=== PATIENT | male | born 2000 | race Asian ===

== ENCOUNTER 2023-10-21 22:35 | Emergency (ER) | payer SELFPAY ==
[2023-10-21 22:36] VITALS: BP 158/84
[2023-10-22 00:28] VITALS: BMI 23.6
--- NOTE | 2023-10-22 01:26 | ED.GENMED ---
History of Present Illness
General
Chief Complaint: Musculo-Skeletal Complaint
Source: patient
Exam Limitations: none
Time Seen by Provider: 10/22/23 00:56
Nursing documentation reviewed up to this point in time: agreed with
Travel History
Have you had any contact with someone who has COVID-19?: No
Do you have any symptoms of coronavirus? Fever > 100 degrees, chills, cough, shortness of breath, sore throat, loss of taste or smell, muscle aches, or headache?: No
History of Present Illness
History of Present Illness:
Patient presents to ED secondary to left wrist pain with swelling, shortly after working out at the gym this afternoon. Denies direct trauma. Patient states that he initially did not have any pain. It is only after the completion of workup, he
noted more prominent swelling of the bone along his wrist. When he looked up on Internet, reviewed possibility of wrist dislocation. Denies previous wrist injury. Denies loss of sensation or weakness.
Past History
Past History
ED Past Medical History: Psychiatric (Schizophrenia)
ED Past Surgical History: None
Patient has exhibited threatening behavior?: No
Social History
Tobacco: Smoker (1 PPD x7 years)
Alcohol: Occasional
Drug: Marijuana
Personal: Single
Living: with family
Employment: Employed (works at [employer])
Family History
Family History: Unable to obtain
Review of Systems
Review of Systems
Allergies reviewed?: Yes
All Other Systems: ROS reviewed and negative except as documented in HPI and ROS
Constitutional: Reports no symptoms
Musculoskeletal: Reports other (Wrist pain with swelling)
Skin: Reports no symptoms
Neurological: Reports no symptoms
Phy Exam
Physical Exam
Physical Exam:
Physical Exam
General: no apparent distress, not acutely ill. afebrile
Head: nc/at. eomi
Neck: supple. no meningeal signs.
Neuro: alert and oriented. no focal neurological deficits
Skin: no rash
Psychiatric: well kept. interactive and cooperative
Extremities: Prominent left wrist ulnar styloid bone noted, without tenderness to palpation. No deformity noted.
Course
Orders/Labs/Results
Orders:
Orders
10/21/23 23:01
Wrist, Left 3 Views CR [CR Wrist - Left Min 3 Views] Urgent
Comment:
Reason For Exam: pain/popping sensation
Vital Signs
Initial and Last Documented VS:
Initial Vital Signs
Temp Pulse Resp BP Pulse Ox
98.0 F 95 18 158/84 98
10/21/23 22:36 10/21/23 22:36 10/21/23 22:36 10/21/23 22:36 10/21/23 22:36
Last Documented Vital Signs
Temp Pulse Resp BP Pulse Ox
98.0 F 95 18 158/84 98
10/21/23 22:36 10/21/23 22:36 10/21/23 22:36 10/21/23 22:36 10/22/23 00:28
MDM/Problems Addressed
MDM/Problems Addressed:
History exam consistent with likely mild wrist sprain, without any obvious deformity nor any acute findings on x-ray. Patient will be provided with universal Velcro wrist splint for symptomatic relief, along with recommendation for PCP follow-up as
an outpatient.
*Critical Care Note
Total Time (30-74mins, 75-104mins- exclusive of procedures): Not Applicable
ED Attending Note
-
Portions of this chart may have been created with voice recognition software.� Occasional wrong word or��sound alike� substitutions may have occurred due to the inherent limitations of voice recognition software.
Discharge Plan
Departure
Patient Disposition: Home (Routine Discharge)
Date of Disposition: 10/22/23
Time of Disposition: 01:26
Patient with high blood pressure during this ER visit?: Yes
Condition: Good
Discharge Problem:
Muscle strain of wrist
Instructions: Wrist Sprain (DC)
Prescriptions:
No Action
No Current Medications
0
Activity Restrictions/Additional Instructions:
As discussed, please follow-up with your primary care physician with any further concerns.
Interventions
Interventions:
*Risk Screen - Suicide Last Done: 10/21/23 22:36
*General Assessment Last Done: 10/21/23 22:36
*Neglect/Abuse Screening Last Done: 10/21/23 22:36
ED- Fall Risk Assessment Last Done: 10/22/23 00:28
*ED COVID-19 Vaccine History Last Done: 10/22/23 00:28
*Nursing Disposition Last Done: 10/22/23 01:39
ED-Musculoskeletal Assessment Last Done: 10/22/23 00:28
Discharge Date and Time
Discharge Date/Time: 10/22/23 01:39
== END 2023-10-22 01:39 | disposition home or self-care (01) ==
LOC: EMR 22:35
PROVIDERS: EMERGENCY PHYSICIAN Emergency Medicine
DX: S66.912A Strain of unspecified muscle, fascia and tendon at wrist and hand level, left hand, initial encounter (principal); X50.9XXA Other and unspecified overexertion or strenuous movements or postures, initial encounter; F17.210 Nicotine dependence, cigarettes, uncomplicated; R03.0 Elevated blood-pressure reading, without diagnosis of hypertension
CPT/HCPCS: 99283; 29125; 73110

== ENCOUNTER 2024-02-03 18:51 | Emergency (ER) | payer OTHER, SELFPAY ==
[2024-02-03 18:52] VITALS: BP 146/100
--- NOTE | 2024-02-03 19:55 | ED.GENMED ---
History of Present Illness
General
Chief Complaint: Male Genito-Urinary Symptoms
Source: patient
Exam Limitations: none
Time Seen by Provider: 02/03/24 19:18
Nursing documentation reviewed up to this point in time: agreed with
History of Present Illness
History of Present Illness:
23 y/o M with h/o anxiety
here with requests for STD testing
pt says that he had unprotected sex with a female yesterday and then heard that she 'sleeps around' so he got concerned
he poured some mouthwash on his penis for disinfectant
and now he wants to be tested and treated for STI
no dysuria, penile discharge, testiciular pain, swelling rash
Past History
Past History
ED Past Medical History: Psychiatric (Schizophrenia)
ED Past Surgical History: None
Patient has exhibited threatening behavior?: No
Social History
Tobacco: Smoker (1 PPD x7 years)
Alcohol: Occasional
Drug: Marijuana
Personal: Single
Living: with family
Employment: Employed (works at [employer])
Family History
Family History: Unable to obtain
Review of Systems
Review of Systems
Allergies reviewed?: Yes
All Other Systems: Not applicable
Phy Exam
Physical Exam
Physical Exam:
GENERAL: Alert , in no apparent distress
cv: regular
lungs clear
: deferred
PSYCH: anxious, but no halluciantions, delusions
Course
Orders/Labs/Results
Orders:
Orders
02/03/24 19:55
Azithromycin [Zithromax] 1,000 mg PO NOW STA
Ceftriaxone Sodium [Rocephin] 500 mg IM NOW STA
MetroNIDAZOLE [Flagyl] 2,000 mg PO NOW STA
02/03/24 19:58
Chlamydia/GC by PCR Urgent
GE[facility]A Source: Urine
Specimen Description:
Source:: URINE
Date Specimen was Collected: 02/03/24
Time Specimen was Collected: 19:57
02/03/24 20:06
Lidocaine 1%/Epinephrine [Xylocaine 1% with Epinephrine] 20 ml .ROUTE .STK-MED ONE
Vital Signs
Initial and Last Documented VS:
Initial Vital Signs
Temp Pulse Resp BP Pulse Ox
97.8 F 100 18 146/100 100
02/03/24 18:52 02/03/24 18:52 02/03/24 18:52 02/03/24 18:52 02/03/24 18:52
Last Documented Vital Signs
Temp Pulse Resp BP Pulse Ox
97.8 F 100 18 146/100 100
02/03/24 18:52 02/03/24 18:52 02/03/24 18:52 02/03/24 18:52 02/03/24 18:52
MDM/Problems Addressed
Differential Diagnosis Includes:
std exposure
MDM/Problems Addressed:
23 y/o M with no reported pmh but schizophrenia/anxiety dx
here with requests for STI treatment after having unprotected sex las tnight with female
no sypmtoms
anxious
declined exam
no allergies
gc/ct pending
abx offered
needs HIV testing 3 mo
*Critical Care Note
Total Time (30-74mins, 75-104mins- exclusive of procedures): Not Applicable
ED Attending Note
-
Portions of this chart may have been created with voice recognition software.� Occasional wrong word or��sound alike� substitutions may have occurred due to the inherent limitations of voice recognition software.
Discharge Plan
Departure
Patient Disposition: Home (Routine Discharge)
Date of Disposition: 02/03/24
Time of Disposition: 20:05
Patient with high blood pressure during this ER visit?: No
Condition: Fair
Covid-19: Not Applicable
Discharge Problem:
Concern about STD in male without diagnosis
Instructions: Sexually Transmitted Infections ED
Prescriptions:
No Action
No Current Medications
0
Referrals:
UNKNOWN - PT DOES,NOT KNOW [Family Provider] -
Activity Restrictions/Additional Instructions:
YOU WERE TREATED FOR GONORRHEA, CHLMAYDIA AND TRICHOMONAS
YOU SHOULD NOT HAVE ANY ALCOHOL FOR 3 DAYS
YOU NEED TO FOLLOW UP WITH YOUR DOCTOR OR [facility]ANNED [facility] AND HAVE HIV AND SYPHILIS TESTING WITHIN A FEW MONTHS
WE WILL CALL YOU IF YOU ARE POSITIVE FOR ONE OF THESE INFECTIONS
IF YOU DO NOT HEAR FROM US, THE TESTS WERE NEGATIVE
YOU MAY HAVE STOMACH UPSET WITH THE MEDICATION
RETURN FO RANY CONCERNS
NO SEX FOR 2 WEEKS IF YOU TEST POSITIVE
Interventions
Interventions:
*Risk Screen - Suicide Last Done: 02/03/24 18:52
*Neglect/Abuse Screening Last Done: 02/03/24 18:52
*Nursing Disposition Last Done: 02/03/24 20:26
ED-Male Genitourinary Assessment Last Done: 02/03/24 20:00
Discharge Date and Time
Discharge Date/Time: 02/03/24 20:26
Print Language: QATARI
[2024-02-03] MEDS: FLAGYL 2000 MG PO (20:09)
[2024-02-03] MEDS: ZITHROMAX 1000 MG PO (20:11)
[2024-02-03] MEDS: ROCEPHIN 500 MG IM (20:12)
== END 2024-02-03 20:26 | disposition home or self-care (01) ==
LOC: EMR 18:51
PROVIDERS: EMERGENCY PHYSICIAN Emergency Medicine
DX: Z20.2 Contact with and (suspected) exposure to infections with a predominantly sexual mode of transmission (principal); F20.9 Schizophrenia, unspecified; F41.9 Anxiety disorder, unspecified
CPT/HCPCS: 99284; 96372; 87491; 87591